=== PATIENT | female | born 1990 | race Two or more races ===

== ENCOUNTER 2017-01-11 21:11 | Emergency (ER) | payer MEDICAID ==
[~2017-01-11] VITALS: Ht 175.3 cm; Wt 102.1 kg
[~2017-01-11 21:11] MED LIST: ACETAMINOPHEN-1 EAC1 ORAL; AMOXICILLIN500 MG ORAL; IBUPROFEN600 MG ORAL; IBUPROFEN800 MG ORAL; NKM; NORCO 5-325 TA1 EACH ORAL; PROMETHAZINE-C118 M1 ORAL; SUDAFED60 MG ORAL; ZOFRAN ODT4 MG ORAL
[2017-01-11 22:10] LABS: APPEARANCE,URINE CLEAR; KETONES,URINE NEGATIVE (NEGATIVE); LEUKOCYTE ESTERASE ,URINE 1+ (NEGATIVE); NITRITE,URINE NEGATIVE (NEGATIVE); PH,URINE 6 (4.5-8.0); PROTEIN,URINE NEGATIVE (NEGATIVE); UROBILINOGEN,URINE 4 MG/DL (0.0-1.0)
[2017-01-11 22:24] LABS: RBC,URINE 0-2 /HPF (0 - 2); WBC,URINE 0-2 /HPF (0 - 2)
[2017-01-11 22:25] LABS: BACTERIA,URINE FEW /HPF; MUCUS,URINE MODERATE /LPF (NONE/OCC); SQUAMOUS EPITHELIAL CELL,UR FEW /LPF (NONE/OCC)
--- NOTE | 2017-01-11 22:37 | Emergency Room Report ---
History of Present Illness General Chief Complaint: Headache Source: Patient Present Illness HPI Patient presents with itching of her hands. This is associated when she rea been in the past. She also complains about some headache. Her last period was January 02 and heavy. She's taken home tests which have been negative. She states that eating ice chips else with the itching. She states that Benadryl has not helped her in the past. The headache pain is 6/10. Is generalized. Is pressure. She denies any sinus pain or discharge. She denies any sore throat. No dysuria, change in bowels, NV, joint or neck pain. No rashes. No fever. No prior allergies. No new foods or soaps. 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 Last Menstrual Period: December Reviewed Nursing Documentation: PMH: Agreed, PSxH: Agreed Nursing Documentation-PMH Past Medical History: No Stated History Review of Systems All Other Systems: negative except mentioned in HPI Physical Exam Vital Signs Date Time Temp Pulse Resp B/P Pulse Ox O2 Delivery O2 Flow Rate FiO2 01/11/17 21:22 98.4 83 16 113/64 97 Room Air Sp02 EP Interpretation: reviewed, normal General Appearance: well appearing, no apparent distress, GCS 15 Head: normocephalic, atraumatic Eyes: bilateral eye PERRL, bilateral eye normal inspection ENT: hearing grossly normal, normal pharynx, normal voice, moist mucus membranes Neck: full range of motion, supple Respiratory: no respiratory distress, speaking full sentences Cardiovascular #1: regular rate, rhythm Gastrointestinal: normal inspection, overweight Musculoskeletal: digits/nails normal, gait/station normal, normal range of motion Neurologic: alert, oriented x3, motor strength/tone normal, DTRs symmetric, sensory intact, cerebellar normal, normal gait Psychiatric: mood/affect normal Skin: no rash, other - No lesions hands or feet Medical Decision Making Diagnostic Impression: Primary Impression: Itching Additional Impression: Headache Qualified Codes: R51 - Headache ER Course Patient presents with itching and headache she states it usually happens when she is . Her last period was abnormal. Differential includes viral syndrome, allergies, urticaria amongst others. Obviously we need to exclude that she might be . Urinalysis and test will be sent. The patient be treated with Tylenol at this time. Preg negative. Etiology of itching unclear. Headache improved. Patient stable for outpatient observation and treatment. Laboratory Tests Test 01/11/17 21:40 Urine Color Yellow Urine Appearance Clear Urine pH 6 (4.5-8.0) Urine Specific [place] 1.020 (1.005-1.035) Urine Protein Negative (NEGATIVE) Urine Glucose (UA) Negative (NEGATIVE) Urine Ketones Negative (NEGATIVE) Urine Occult Blood Negative (NEGATIVE) Urine Nitrite Negative (NEGATIVE) Urine Bilirubin Negative (NEGATIVE) Urine Urobilinogen 4 MG/DL (0.0-1.0) H Urine Leukocyte Esterase 1+ (NEGATIVE) H Urine RBC 0-2 /HPF (0 - 2) Urine WBC 0-2 /HPF (0 - 2) Urine Squamous Epithelial Cells Few /LPF (NONE/OCC) Urine Bacteria Few /HPF (NONE) Urine Mucus Moderate /LPF (NONE/OCC) H Urine HCG, Qualitative Negative Last Vital Signs Date Time Temp Pulse Resp B/P Pulse Ox O2 Delivery O2 Flow Rate FiO2 01/11/17 22:55 98.4 76 18 109/64 99 Room Air Status: improved Disposition: HOME, SELF-CARE Condition: Improved Scripts Hydroxyzine Pamoate (VISTARIL) 25 Mg Capsule 25 MG PO Q6HR, #10 CAP 1 Refill Prov: David Espinosa M.D. 01/11/17 Ibuprofen* (MOTRIN*) 600 Mg Tablet 600 MG ORAL Q6H Y for For Pain, #16 TAB Prov: David Espinosa M.D. 01/11/17 Referrals: [facility],REFERRING (PCP) David Espinosa M.D. January 11, 2017 22:37
[2017-01-11 22:43] VITALS: BP 109/64
[2017-01-11] MEDS ORDERED: IBUPROFEN600 MG ORAL (22:49)
[2017-01-11] MEDS ORDERED: VISTARIL25 M1 PO (22:49)
[2017-01-11 22:55] VITALS: BP 109/64
== END 2017-01-11 22:55 | disposition home or self-care (01) ==
LOC: EMR 22:02
DX: R51 Headache (principal); L29.9 Pruritus, unspecified; F17.200 Nicotine dependence, unspecified, uncomplicated; Z88.8 Allergy status to other drugs, medicaments and biological substances
CPT/HCPCS: 81003; 81025; 99284

== ENCOUNTER 2017-08-25 09:05 | Emergency (ER) | payer MEDICAID ==
[~2017-08-25] VITALS: Ht 175.3 cm; Wt 81.6 kg
[~2017-08-25 09:05] MED LIST changes: +VISTARIL25 M1 PO
[2017-08-25 09:08] VITALS: BP 116/83
[2017-08-25] MEDS ORDERED: Sodium Chloride 500ML 500 ML IV ONE (09:36)
[2017-08-25] MEDS ORDERED: Solu-MEDROL 125mg Inj IVP ONE (09:45)
[2017-08-25] MEDS ORDERED: DiphenhydrAMINE 50mg/ml Inj IVP ONE (09:45)
[2017-08-25] MEDS ORDERED: RANITIDINE HCL150 MG ORAL (11:00)
[2017-08-25] MEDS ORDERED: DIPHENHYDRAMINE25 M1 ORAL (11:00)
[2017-08-25] MEDS ORDERED: PREDNISONE20 MG ORAL (11:00)
[2017-08-25 11:30] VITALS: BP 109/67
[2017-08-25 11:35] VITALS: BP 109/67
--- NOTE | 2017-08-25 13:42 | Emergency Room Report ---
History of Present Illness General Chief Complaint: Allergic Reaction Source: Patient Present Illness HPI 26-year-old female presents to ED for evaluation. States that she believes she is having an allergic reaction. Started yesterday after using methamphetamine. Initially noted hives which resolved. State that her throat feels tight in her tongue is swollen. Denies any known food or drug allergies. Denies chest pain or shortness of breath. No other aggravating or relieving factors. Denies any other associated symptoms Allergies: Coded Allergies: OSELTAMIVIR (Unverified Allergy, Unknown, 02/23/15) Patient History Past Medical History: none Past Surgical History: none Pertinent Family History: none Social History: Denies: smoking, alcohol use, drug use Last Menstrual Period: 08/24/17 Now: No Immunizations: UTD Reviewed Nursing Documentation: PMH: Agreed, PSxH: Agreed Nursing Documentation-PMH Past Medical History: No Stated History Review of Systems All Other Systems: negative except mentioned in HPI Physical Exam Vital Signs Date Time Temp Pulse Resp B/P (MAP) Pulse Ox O2 Delivery O2 Flow Rate FiO2 08/25/17 09:08 97.9 89 18 116/83 100 Room Air Sp02 EP Interpretation: reviewed, normal General Appearance: no apparent distress, alert, GCS 15, non-toxic Head: normocephalic, atraumatic Eyes: bilateral eye normal inspection, bilateral eye PERRL ENT: hearing grossly normal, normal pharynx, no angioedema, normal voice Neck: full range of motion, supple/symm/no masses Respiratory: chest non-tender, lungs clear, normal breath sounds, speaking full sentences Cardiovascular #1: regular rate, rhythm, no edema Cardiovascular #2: 2+ carotid (R), 2+ carotid (L), 2+ radial (R), 2+ radial (L) , 2+ dorsalis pedis (R), 2+ dorsalis pedis (L) Gastrointestinal: normal bowel sounds, non tender, soft, non-distended, no guarding, no rebound Rectal: deferred Genitourinary: normal inspection, no CVA tenderness Musculoskeletal: back normal, gait/station normal, normal range of motion, non- tender Neurologic: alert, oriented x3, responsive, motor strength/tone normal, sensory intact, speech normal Psychiatric: judgement/insight normal, memory normal, mood/affect normal, no suicidal/homicidal ideation Reflexes: 3+ bicep (R), 3+ bicep (L), 3+ tricep (R), 3+ tricep (L), 3+ knee (R) , 3+ knee (L) Skin: normal color, no rash, warm/dry, well hydrated Lymphatic: no adenopathy Medical Decision Making Diagnostic Impression: Primary Impression: Allergic reaction Qualified Codes: T78.40XA - Allergy, unspecified, initial encounter ER Course Hospital Course 26-year-old female presents to ED complaining of tongue swelling and throat tightness, urticarial rash after using methamphetamines Differential diagnoses include: allergic reaction, angioedema Clinical course 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 After initial history physical exam reveals a female in no acute distress. No stridor detected. Tongue appears normal. Lungs clear. AI ordered Solu-Medrol, Benadryl, Zantac, IV fluids Upon reassessment patient states she feels better. i. I feel this is a highly complex case requiring extensive working including EKG/Rhythm strip, Xray/CT/US, Blood/urine lab work, repeat exams while in ED, and administration of strong opiates/narcotics for pain control, admission to hospital or close patient follow up. Diagnosis - allergic reaction Stable and discharged to home with prescriptions for Zantac, prednisone, Benadryl. Followup with PMD. Return to ED if symptoms recur or worsen Last Vital Signs Date Time Temp Pulse Resp B/P (MAP) Pulse Ox O2 Delivery O2 Flow Rate FiO2 08/25/17 09:08 97.9 89 18 116/83 100 Room Air Status: improved Disposition: HOME, SELF-CARE Condition: Stable Scripts Diphenhydramine Hcl* (DIPHENHYDRAMINE HCL*) 25 Mg Capsule 25 MG ORAL Q6H Y for Itching for 5 Days, #30 CAP 0 Refills Prov: HAMMAD SPARKS M.D. 08/25/17 Prednisone* (PREDNISONE*) 20 Mg Tablet 40 MG ORAL DAILY, #10 TAB Prov: HAMMAD SPARKS M.D. 08/25/17 Ranitidine Hcl* (ZANTAC*) 150 Mg Tablet 150 MG ORAL TWICE A DAY, #30 TAB Prov: HAMMAD SPARKS M.D. 08/25/17 Referrals: [facility]ERR[facility] (PCP) Patient Instructions: Drug Allergy, [id number] HAMMAD SPARKS M.D. Aug 25, 2017 13:42
== END 2017-08-25 11:36 | disposition home or self-care (01) ==
LOC: EMR 09:25
DX: T78.40XA Allergy, unspecified, initial encounter (principal); X58.XXXA Exposure to other specified factors, initial encounter; M79.89 Other specified soft tissue disorders; L50.9 Urticaria, unspecified
CPT/HCPCS: 81025; 96361; 96374; 96375; 99284; J1200; J2930; J7040; S0028

== ENCOUNTER 2017-12-07 20:55 | Emergency (ER) | payer MEDICAID ==
[~2017-12-07] VITALS: Ht 175.3 cm; Wt 98.4 kg
[~2017-12-07 20:55] MED LIST changes: +DIPHENHYDRAMINE25 M1 ORAL; +PREDNISONE20 MG ORAL; +RANITIDINE HCL150 MG ORAL
[2017-12-07] MEDS ORDERED: NKM (21:13)
--- NOTE | 2017-12-07 21:22 | Emergency Room Report ---
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 Patient reports that today she was going up the stairs in her house [place] some cramping and gush of warm fluid And realized that she had passed some blood clots she reports increased nausea and vomiting throughout the day today Denies any back or flank pain denies any chest pain or shortness of breath Patient is a her child is 5 years old Allergies: Coded Allergies: OSELTAMIVIR (Unverified Allergy, Unknown, 02/23/15) Patient History Past Medical History: see triage record Pertinent Family History: none Now: Yes : 2 Para: 1 Reviewed Nursing Documentation: PMH: Agreed; PSxH: Agreed Nursing Documentation-PMH Past Medical History: No Stated History Review of Systems All Other Systems: negative except mentioned in HPI Physical Exam Vital Signs Date Time Temp Pulse Resp B/P (MAP) Pulse Ox O2 Delivery O2 Flow Rate FiO2 12/07/17 21:05 97.6 120 14 120/75 99 Room Air 97.5 Sp02 EP Interpretation: reviewed, normal General Appearance: well appearing, no apparent distress Head: normocephalic, atraumatic Eyes: bilateral eye PERRL, bilateral eye EOMI ENT: hearing grossly normal, normal pharynx, TMs + canals normal, uvula midline Neck: full range of motion, supple, no meningismus, no bony tend Respiratory: lungs clear, normal breath sounds, no rhonchi, no respiratory distress, no retraction, no accessory muscle use Cardiovascular #1: normal peripheral pulses, regular rate, rhythm, no edema, no gallop, no JVD, no murmur Gastrointestinal: normal bowel sounds, non tender, soft, no mass - Fairly early in the process I cannot palpate a abdomen, no organomegaly , non-distended, no guarding, no hernia, no pulsatile mass, no rebound Genitourinary: no CVA tenderness Musculoskeletal: normal inspection Neurologic: oriented x3, responsive, tool crib attendant III-XII nml as tested, motor strength/ tone normal, sensory intact Psychiatric: mood/affect normal Skin: normal color, no rash, warm/dry, palpation normal Lymphatic: normal inspection, no adenopathy Medical Decision Making Diagnostic Impression: Primary Impression: Incomplete ER Course With the patient's history and examination, multiple differentials considered, including but not limited to , ectopic , ovarian torsion, gastritis, cholecystitis, pancreatitis, appendicitis Patient's test is positive Pelvic ultrasound reveals intrauterine with heart rate However given the bleeding and the patient's presentation threatened miscarriage is considered Patient requires repeat blood work and imaging and close outpatient follow-up Labs Test 12/07/17 21:45 12/07/17 21:48 White Blood Count 12.8 K/UL (4.8-10.8) Red Blood Count 4.26 M/UL (4.20-5.40) Hemoglobin 14.2 G/DL (12.0-16.0) Hematocrit 40.3 % (37.0-47.0) Mean Corpuscular Volume 95 FL (80-99) Mean Corpuscular Hemoglobin 33.4 PG (27.0-31.0) Mean Corpuscular Hemoglobin Concent 35.2 G/DL (32.0-36.0) Red Cell Distribution Width 10.0 % (11.6-14.8) Platelet Count 264 K/UL (150-450) Mean Platelet Volume 8.4 FL (6.5-10.1) Neutrophils (%) (Auto) 76.4 % (45.0-75.0) Lymphocytes (%) (Auto) 16.0 % (20.0-45.0) Monocytes (%) (Auto) 6.2 % (1.0-10.0) Eosinophils (%) (Auto) 0.8 % (0.0-3.0) Basophils (%) (Auto) 0.6 % (0.0-2.0) Sodium Level 137 MMOL/L (136-145) Potassium Level 3.4 MMOL/L (3.5-5.1) Chloride Level 102 MMOL/L (98-107) Carbon Dioxide Level 24 MMOL/L (21-32) Anion Gap 11 mmol/L (5-15) Blood Urea Nitrogen 7 mg/dL (7-18) Creatinine 0.8 MG/DL (0.55-1.30) Estimat Glomerular Filtration Rate > 60 mL/min (>60) Glucose Level 124 MG/DL (74-106) Calcium Level 8.8 MG/DL (8.5-10.1) Total Bilirubin 0.4 MG/DL (0.2-1.0) Aspartate Amino Transf (AST/SGOT) 46 U/L (15-37) Alanine Aminotransferase (ALT/SGPT) 159 U/L (12-78) Alkaline Phosphatase 90 U/L (46-116) Total Protein 7.3 G/DL (6.4-8.2) Albumin 3.5 G/DL (3.4-5.0) Globulin 3.8 g/dL Albumin/Globulin Ratio 0.9 (1.0-2.7) Lipase 93 U/L (73-393) Human Chorionic Gonadotropin, Quant 80283 mIU/mL (1-6) Urine Color Pale yellow Urine Appearance Clear Urine pH 8 (4.5-8.0) Urine Specific [place] 1.010 (1.005-1.035) Urine Protein Negative (NEGATIVE) Urine Glucose (UA) Negative (NEGATIVE) Urine Ketones Negative (NEGATIVE) Urine Occult Blood 2+ (NEGATIVE) Urine Nitrite Negative (NEGATIVE) Urine Bilirubin Negative (NEGATIVE) Urine Urobilinogen Normal MG/DL (0.0-1.0) Urine Leukocyte Esterase Negative (NEGATIVE) Urine RBC 0-2 /HPF (0 - 2) Urine WBC 0 /HPF (0 - 2) Urine Squamous Epithelial Cells Few /LPF (NONE/OCC) Urine Bacteria Few /HPF (NONE) Urine HCG, Qualitative Positive (NEGATIVE) CT/MRI/US Diagnostic Results CT/MRI/US Diagnostic Results : Impression pelvic ultrasoundImpression: Single live intrauterine , estimated gestational age 6 weeks 4 days by crown-rump length measurement. No unusual features Last Vital Signs Date Time Temp Pulse Resp B/P (MAP) Pulse Ox O2 Delivery O2 Flow Rate FiO2 12/07/17 21:05 97.6 120 14 120/75 99 Room Air 97.5 Status: improved Disposition: HOME, SELF-CARE Condition: Improved Scripts Metoclopramide Hcl* (REGLAN*) 5 Mg Tablet 5 MG ORAL EVERY 8 HOURS, #10 TAB Prov: Luigi Melgar 12/07/17 Additional Instructions: Patient is provided with the discharge instructions notified to follow up with primary doctor in the next 2-3 days otherwise return to the er with any worsening symptoms. Please note that this report is being documented using [employer] technology. This can lead to erroneous entry secondary to incorrect interpretation by the dictating instrument. Luigi Melgar DO Dec 07, 2017 21:22
[2017-12-07 22:06] LABS: BASOPHILS % (AUTO) 0.6 % (0.0-2.0); EOSINOPHILS % (AUTO) 0.8 % (0.0-3.0); HEMATOCRIT 40.3 % (37.0-47.0); HEMOGLOBIN 14.2 G/DL (12.0-16.0); MEAN CORPUSCULAR VOLUME 95 FL (80-99); MONOCYTES % (AUTO) 6.2 % (1.0-10.0); NEUTROPHILS % (AUTO) 76.4 % (45.0-75.0); PLATELET COUNT 264 K/UL (150-450); RED BLOOD COUNT 4.26 M/UL (4.20-5.40); WHITE BLOOD COUNT 12.8 K/UL (4.8-10.8)
[2017-12-07 22:12] LABS: APPEARANCE,URINE CLEAR; BILIRUBIN, URINE NEGATIVE (NEGATIVE); COLOR,URINE PALE YELLOW; GLUCOSE, URINE (UA) NEGATIVE (NEGATIVE); KETONES,URINE NEGATIVE (NEGATIVE); LEUKOCYTE ESTERASE ,URINE NEGATIVE (NEGATIVE); NITRITE,URINE NEGATIVE (NEGATIVE); PH,URINE 8 (4.5-8.0); PROTEIN,URINE NEGATIVE (NEGATIVE); UROBILINOGEN,URINE NORMAL MG/DL (0.0-1.0)
[2017-12-07] MEDS ORDERED: Metoclopramide 10mg/2ml Inj IVP ONE (22:15)
[2017-12-07] MEDS ORDERED: REGLAN5 MG ORAL (23:23)
[2017-12-07 23:30] VITALS: BP 118/72
[2017-12-08 00:54] LABS: ALANINE AMINOTRANSFERASE 159 U/L (12-78); ALBUMIN 3.5 G/DL (3.4-5.0); ALBUMIN/GLOBULIN RATIO 0.9 (1.0-2.7); ALKALINE PHOSPHATASE 90 U/L (46-116); ANION GAP 11 mmol/L (5-15); ASPARTATE AMINO TRANSFERASE 46 U/L (15-37); BILIRUBIN,TOTAL 0.4 MG/DL (0.2-1.0); BLOOD UREA NITROGEN 7 mg/dL (7-18); CALCIUM 8.8 MG/DL (8.5-10.1); CARBON DIOXIDE 24 MMOL/L (21-32); CHLORIDE 102 MMOL/L (98-107); CREATININE 0.8 MG/DL (0.55-1.30); POTASSIUM 3.4 MMOL/L (3.5-5.1); SODIUM 137 MMOL/L (136-145)
--- NOTE | 2017-12-08 09:32 | Diagnostic Imaging Report ---
Indication: Abdominal pain, patient Technique: Transabdominal and transvaginal images Comparison: none Findings: Uterus measures 9.7 cm in length by 6.9 cm AP. Within the endometrium, there is a gestational sac containing a pole. There is positive heart activity, heart rate 153 bpm. [place]-rump length is 7 mm, corresponding to an estimated gestational age of 6 weeks 4 days. No subchorionic hemorrhage demonstrated. No myometrial abnormality. The right ovary measures 2.2 cm in length. The left ovary measures 3.5 cm in length. No adnexal mass. No free cul-de-sac fluid. Impression: Single live intrauterine , estimated gestational age 6 weeks 4 days by crown-rump length measurement. No unusual features
== END 2017-12-07 23:30 | disposition home or self-care (01) ==
LOC: EMR 21:15
DX: O20.8 Other hemorrhage in early pregnancy (principal); Z3A.01 Less than 8 weeks gestation of pregnancy
CPT/HCPCS: 36415; 76830; 76856; 80053; 81003; 81025; 83690; 84702; 85025; 96374; 96375; 99284; J2765

== ENCOUNTER 2018-02-26 10:57 | Emergency (ER) | payer MEDICAID ==
[~2018-02-26] VITALS: Ht 175.3 cm; Wt 107.0 kg
[~2018-02-26 10:57] MED LIST changes: +REGLAN5 MG ORAL
[2018-02-26 11:40] LABS: BASOPHILS % (AUTO) 0.8 % (0.0-2.0); EOSINOPHILS % (AUTO) 0.7 % (0.0-3.0); HEMATOCRIT 35.5 % (37.0-47.0); HEMOGLOBIN 12.4 G/DL (12.0-16.0); LYMPHOCYTES % (AUTO) 11.9 % (20.0-45.0); MEAN CORPUSCULAR VOLUME 94 FL (80-99); MONOCYTES % (AUTO) 5.7 % (1.0-10.0); NEUTROPHILS % (AUTO) 80.9 % (45.0-75.0); PLATELET COUNT 215 K/UL (150-450); RED BLOOD COUNT 3.79 M/UL (4.20-5.40); RED CELL DISTRIBUTION WIDTH 10.3 % (11.6-14.8)
[2018-02-26 11:43] LABS: APPEARANCE,URINE CLEAR; BILIRUBIN, URINE NEGATIVE (NEGATIVE); GLUCOSE, URINE (UA) NEGATIVE (NEGATIVE); KETONES,URINE NEGATIVE (NEGATIVE); LEUKOCYTE ESTERASE ,URINE NEGATIVE (NEGATIVE); NITRITE,URINE NEGATIVE (NEGATIVE); PH,URINE 6 (4.5-8.0); PROTEIN,URINE NEGATIVE (NEGATIVE); UROBILINOGEN,URINE NORMAL MG/DL (0.0-1.0)
[2018-02-26 11:48] LABS: COLOR,URINE YELLOW
[2018-02-26 12:00] LABS: ANION GAP 11 mmol/L (5-15); BLOOD UREA NITROGEN 5 mg/dL (7-18); CARBON DIOXIDE 22 MMOL/L (21-32); CHLORIDE 104 MMOL/L (98-107); CREATININE 0.5 MG/DL (0.55-1.30); POTASSIUM 3.3 MMOL/L (3.5-5.1); SODIUM 137 MMOL/L (136-145)
[2018-02-26 12:04] LABS: ALANINE AMINOTRANSFERASE 61 U/L (12-78); ALBUMIN/GLOBULIN RATIO 0.8 (1.0-2.7); ALKALINE PHOSPHATASE 79 U/L (46-116); ASPARTATE AMINO TRANSFERASE 26 U/L (15-37); BILIRUBIN,TOTAL 0.3 MG/DL (0.2-1.0)
[2018-02-26] MEDS ORDERED: DICLEGIS DR 101 EACH PO (12:19)
[2018-02-26 12:52] VITALS: BP 117/70
--- NOTE | 2018-02-26 13:07 | Emergency Room Report ---
History of Present Illness General Chief Complaint: Complications Source: Patient Present Illness HPI Patient is a 27-year-old female who presented after increased abdominal cramping. Patient reported having intermittent cramping. She states that she is approximately 19 weeks . The patient is . She reports having prior . Patient denies any vaginal bleeding or leakage of fluid. She reports having abnormal movement of fetus. Allergies: Coded Allergies: OSELTAMIVIR (Unverified Allergy, Unknown, 02/23/15) Patient History Past Medical History: see triage record Reviewed Nursing Documentation: PMH: Agreed; PSxH: Agreed Nursing Documentation-PMH Past Medical History: No History, Except For Review of Systems All Other Systems: negative except mentioned in HPI Physical Exam Vital Signs Date Time Temp Pulse Resp B/P (MAP) Pulse Ox O2 Delivery O2 Flow Rate FiO2 02/26/18 11:03 98.2 95 16 117/70 98 Room Air 98.2 Sp02 EP Interpretation: reviewed, normal General Appearance: normal inspection, well appearing, no apparent distress, alert, GCS 15 Head: atraumatic ENT: normal ENT inspection, hearing grossly normal, normal voice Neck: normal inspection, full range of motion, supple, no bony tend Respiratory: normal inspection, lungs clear, normal breath sounds, no respiratory distress, no retraction, no wheezing Cardiovascular #1: regular rate, rhythm, no edema Gastrointestinal: normal inspection, normal bowel sounds, non tender, soft, no guarding, no hernia Genitourinary: no CVA tenderness Musculoskeletal: normal inspection, back normal, normal range of motion Neurologic: normal inspection, alert, oriented x3, responsive, english language learner tutor III-XII nml as tested, speech normal Psychiatric: normal inspection, judgement/insight normal, mood/affect normal Skin: normal inspection, normal color, no rash Medical Decision Making Diagnostic Impression: Primary Impression: Abdominal pain Additional Impression: Intrauterine ER Course Patient presented for abdominal pain. Differential diagnoses included ischemic bowel, appendicitis, perforated viscus, abdominal aortic aneurysm, viral gastroenteritis, labor, demise, threatened among others.Because of complexity of patient's case laboratory testing and imaging studies were ordered. The left wrist studies showed evidence of hypokalemia. Patient was given IV magnesium as well as IV fluids as she subsequent had improvement in her abdominal cramping. Patient was noted to have intrauterine with heart tones approximately 150s. The patient is advised to follow up with primary care doctor in 1-2 days. Patient is advised to return if any worsening condition or if any changes in status that are concerning. This report is dictated with [employer] project manager/design manager software which may occasionally lead to discrepancies related to use of this software. Labs Test 02/26/18 08:53 02/26/18 11:30 Urine Color Yellow Urine Appearance Clear Urine pH 6 (4.5-8.0) Urine Specific [place] 1.020 (1.005-1.035) Urine Protein Negative (NEGATIVE) Urine Glucose (UA) Negative (NEGATIVE) Urine Ketones Negative (NEGATIVE) Urine Occult Blood Negative (NEGATIVE) Urine Nitrite Negative (NEGATIVE) Urine Bilirubin Negative (NEGATIVE) Urine Urobilinogen Normal MG/DL (0.0-1.0) Urine Leukocyte Esterase Negative (NEGATIVE) White Blood Count 12.0 K/UL (4.8-10.8) Red Blood Count 3.79 M/UL (4.20-5.40) Hemoglobin 12.4 G/DL (12.0-16.0) Hematocrit 35.5 % (37.0-47.0) Mean Corpuscular Volume 94 FL (80-99) Mean Corpuscular Hemoglobin 32.8 PG (27.0-31.0) Mean Corpuscular Hemoglobin Concent 35.0 G/DL (32.0-36.0) Red Cell Distribution Width 10.3 % (11.6-14.8) Platelet Count 215 K/UL (150-450) Mean Platelet Volume 9.3 FL (6.5-10.1) Neutrophils (%) (Auto) 80.9 % (45.0-75.0) Lymphocytes (%) (Auto) 11.9 % (20.0-45.0) Monocytes (%) (Auto) 5.7 % (1.0-10.0) Eosinophils (%) (Auto) 0.7 % (0.0-3.0) Basophils (%) (Auto) 0.8 % (0.0-2.0) Sodium Level 137 MMOL/L (136-145) Potassium Level 3.3 MMOL/L (3.5-5.1) Chloride Level 104 MMOL/L (98-107) Carbon Dioxide Level 22 MMOL/L (21-32) Anion Gap 11 mmol/L (5-15) Blood Urea Nitrogen 5 mg/dL (7-18) Creatinine 0.5 MG/DL (0.55-1.30) Estimat Glomerular Filtration Rate > 60 mL/min (>60) Glucose Level 119 MG/DL (74-106) Calcium Level 9.0 MG/DL (8.5-10.1) Total Bilirubin 0.3 MG/DL (0.2-1.0) Aspartate Amino Transf (AST/SGOT) 26 U/L (15-37) Alanine Aminotransferase (ALT/SGPT) 61 U/L (12-78) Alkaline Phosphatase 79 U/L (46-116) Total Protein 6.9 G/DL (6.4-8.2) Albumin 3.0 G/DL (3.4-5.0) Globulin 3.9 g/dL Albumin/Globulin Ratio 0.8 (1.0-2.7) Lipase 121 U/L (73-393) Human Chorionic Gonadotropin, Quant 8284 mIU/mL (1-6) Last Vital Signs Date Time Temp Pulse Resp B/P (MAP) Pulse Ox O2 Delivery O2 Flow Rate FiO2 02/26/18 12:52 98.2 70 16 117/70 98 Room Air 98.2 Status: improved Disposition: HOME, SELF-CARE Condition: Stable Scripts Doxylamine/Pyridoxine Hcl (ESTHER ROMAN 10-10 MG TABLET) 1 Each Tablet. 1 EACH PO QHS, #20 TAB Prov: Gerardo Macias MD 02/26/18 Patient Instructions: Abdominal Pain During Gerardo Macias MD Feb 26, 2018 13:06
--- NOTE | 2018-02-26 14:30 | Diagnostic Imaging Report ---
Indication: Pelvic cramping, patient Technique: Transabdominal images of the uterus Comparison: 12/07/2017 Findings: There is a single live intrauterine . Position is transverse but variable. There is an anterior fundal placenta which clears the internal cervical os. The cervix is closed, measures 3.5 cm in length. There is positive heart activity, heart rate 154 bpm. Amniotic fluid volume normal, amniotic fluid index is 13.2 cm measurements as follows: Biparietal diameter 44 mm, 19 weeks 2 days; head circumference 163 mm, 19 weeks one day; abdominal circumference 144 mm, 19 weeks 5 days; femur length 27 mm, 18 weeks 2 days. Estimated gestational age by average of ultrasound measurements is 19 weeks one day. Estimated date of delivery is 07/22/2018. Estimated gestational age by dates is 19 weeks 2 days. Measurements indicate appropriate interim growth since the previous exam of 12/07/2017 Due to the emergent nature of the exam, only limited survey of anatomy. Normal cerebellum, cisterna magna, spine, bladder, kidneys, cord insertion, four-chamber heart. Impression: 19 week one day, by average of ultrasound measurements, single live intrauterine . No unusual features
== END 2018-02-26 12:54 | disposition home or self-care (01) ==
LOC: EMR 11:58
DX: O26.892 Other specified pregnancy related conditions, second trimester (principal); Z3A.19 19 weeks gestation of pregnancy; R10.9 Unspecified abdominal pain
CPT/HCPCS: 36415; 76805; 80053; 81003; 83690; 84702; 85025; 86850; 86900; 86901; 96360; 96365; 99284; J8499